=== PATIENT | male | born 1985 | race Caucasian/White ===

== ENCOUNTER 2017-01-07 06:18 | Emergency (ER) | payer BC, OTHER, SELFPAY ==
[2017-01-07 07:17] LABS: MEAN CORPUSCULAR HEMOGLOBIN 31.3 pg (27.0-33.0); MEAN CORPUSCULAR HGB CONC 34.1 g/dl (32.0-36.5); MEAN CORPUSCULAR VOLUME 91.9 fl (80.0-96.0); RED CELL DISTRIBUTION WIDTH 13.2 % (11.5-14.5); WHITE BLOOD COUNT 8.4 K/mm3 (4.0-10.0)
[2017-01-07 07:19] LABS: AMPHETAMINES LEVEL URINE NEGATIVE (NEGATIVE); BENZODIAZEPINES URINE NEGATIVE (NEGATIVE); COCAINE METABOLITE URINE NEGATIVE (NEGATIVE); CONTROL LINE INT CTR LINE PRESENT; METHADONE URINE NEGATIVE (NEGATIVE); OPIATES URINE NEGATIVE (NEGATIVE); TRICYCLIC ANTIDEPRESS URINE NEGATIVE (NEGATIVE)
[2017-01-07 07:41] LABS: ALBUMIN 4.2 GM/DL (3.2-5.2); ALBUMIN/GLOBULIN RATIO 1.68 (1.00-1.93); ALKALINE PHOSPHATASE 94 U/L (45-117); ALT/SGPT 40 U/L (12-78); ANION GAP 12 MEQ/L (8-16); AST/SGOT 15 U/L (15-37); BILIRUBIN,DIRECT < 0.1 MG/DL (0.0-0.2); BILIRUBIN,TOTAL 0.2 MG/DL (0.2-1.0); BLOOD UREA NITROGEN 8 MG/DL (7-18); CALCIUM LEVEL 8.6 MG/DL (8.5-10.1); CARBON DIOXIDE LEVEL 25 MEQ/L (21-32); CHLORIDE LEVEL 108 MEQ/L (98-107); CREATININE FOR GFR 0.98 MG/DL (0.70-1.30); GLOMERULAR FILTRATION RATE > 60.0 (>60); GLUCOSE, FASTING 96 MG/DL (70-105); POTASSIUM SERUM 4.2 MEQ/L (3.5-5.1); SODIUM LEVEL 145 MEQ/L (136-145); TOTAL PROTEIN 6.7 GM/DL (6.4-8.2)
[2017-01-07] MEDS ORDERED: GABAPENTIN 100 MG CAP As Ordered ONE (07:58)
--- NOTE | 2017-01-07 17:39 | EDDOCDS ---
Physician Documentation [facility] Name: Mark Medina Age: 31 yrs Sex: Male : 1985 Arrival Date: 01/07/2017 Time: 06:18 Bed [facility] Private MD: Disposition: 01/07/17 15:19 Transfer ordered to [facility] ([place]). Diagnosis is Suicidal ideations. - Reason for transfer: Higher level of care. - Accepting physician is Dr Arvizu. - Condition is Unchanged. - Problem is new. - Symptoms have improved. Historical: - Allergies: No known drug Allergies; - Home Meds: 1. gabapentin 600 mg Oral tab 1 tab 3 times per day - PMHx: back injury; - PSHx: Adenoidectomy; Tonsillectomy; - Social history: Smoking status: Patient uses tobacco products, current every day smoker. No barriers to communication noted, The patient speaks fluent French, Speaks appropriately for age. - Family history: Not pertinent. - : The pt / caregiver states he / she is not on anticoagulants. Home medication list is obtained from the patient. - Exposure Risk Screening:: None identified. Vital Signs: 01/07 06:28 BP 136 / 70; Pulse 109; Resp 18; Temp 99.3(TE); Pulse Ox 96% on R/A; Weight 117.93 kg / rw1 259.99 lbs (R); Height 6 ft. 3 in. (190.50 cm) (R); Pain 0/10; 12:30 BP 131 / 86; Pulse 86; Resp 16; Pulse Ox 96% on R/A; jo3 17:26 BP 128 / 84; Pulse 80; Resp 18; Temp 97.2(O); Pulse Ox 98% ; Pain 0/10; jo3 06:28 Body Mass Index 32.50 (117.93 kg, 190.50 cm) rw1 MDM: 06:26 [facility] Legal paperwork was scanned into [employer] and attached to record. rb 06:48 Consult PFS/PSA/Branch Mechanic ordered. nov 06:48 Consult PFS/PSA/Branch Mechanic: Patient's case requires discussion with on-call domingo Psychiatrist ordered. 06:48 PSA/PFS to call Nursing Botany Teacher, to enter patient data on [place] Safe Act if patient domingo involuntarily admitted or transferred for SI or HI ordered. 06:48 Confirm accurate psychiatric medication list and times of last dosage ordered. domingo 06:48 Detain Pt Until Medically/PFS Cleared ordered. domingo 06:49 Acetaminophen Level Ordered. EDMS 06:49 Basic Metabolic Profile Ordered. EDMS 06:49 Complete Blood Count Ordered. EDMS 06:49 Drug Eval Toxicology ED Only Ordered. EDMS 06:49 Ethyl Alcohol (ethanol) Ordered. EDMS 06:49 Liver Profile Ordered. EDMS 06:49 Salicylate Level Ordered. EDMS 06:49 Thyroid Stimulating Hormone Ordered. EDMS 07:35 Financial registration complete. lg 07:46 [facility] Payment Agreement was scanned into [employer] and attached to record. lg 07:55 Gabapentin 600 mg PO once ordered. ml6 07:59 REGULAR DIET PLASTIC CASSIDY+DIET ordered. EDMS 11:20 REGULAR DIET PLASTIC CASSIDY+DIET ordered. EDMS 17:26 [facility] Legal paperwork was scanned into [employer] and attached to record. ms 17:28 [facility] Legal paperwork was scanned into [employer] and attached to record. ms Administered Medications: 08:01 Drug: Gabapentin 600 mg [gabapentin 100 mg capsule (6 caps)] Route: PO; ml6 Signatures: Dispatcher [employer] EDMS Aileen Paige RN RN jan Baxter, Cora, PSA PSA rb Ravindra, Davida, PSA PSA ms Jennifer Triplett, Reg Reg lg Cherelle Hunt,RN Dariel Castro, RN [place] ml6 Cherelle Ruiz,RN RN js13 Ana Paula Durand,RN RN js15 Amina Ortiz MD MD fg The chart was reviewed and I authenticate all verbal orders and agree with the evaluation and treatment provided.Attachments: 07:46 [facility] Payment Agreement lg MTDD
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
--- NOTE | 2017-01-09 18:39 | EDDOCDS ---
Physician Documentation [facility] Name: Mark Medina Age: 31 yrs Sex: Male : 1985 Arrival Date: 01/07/2017 Time: 06:18 Bed [facility] Private MD: Disposition: 01/07/17 15:19 Transfer ordered to [facility] Diagnosis is Suicidal ideations. - Reason for transfer: Higher level of care. - Accepting physician is Dr Arvizu. - Condition is Unchanged. - Problem is new. - Symptoms have improved. Historical: - Allergies: No known drug Allergies; - Home Meds: 1. gabapentin 600 mg Oral tab 1 tab 3 times per day - PMHx: back injury; - PSHx: Adenoidectomy; Tonsillectomy; - Social history: Smoking status: Patient uses tobacco products, current every day smoker. No barriers to communication noted, The patient speaks fluent Wallisian, Speaks appropriately for age. - Family history: Not pertinent. - : The pt / caregiver states he / she is not on anticoagulants. Home medication list is obtained from the patient. - Exposure Risk Screening:: None identified. Vital Signs: 01/07 06:28 BP 136 / 70; Pulse 109; Resp 18; Temp 99.3(TE); Pulse Ox 96% on R/A; Weight 117.93 kg / rw1 259.99 lbs (R); Height 6 ft. 3 in. (190.50 cm) (R); Pain 0/10; 12:30 BP 131 / 86; Pulse 86; Resp 16; Pulse Ox 96% on R/A; jo3 17:26 BP 128 / 84; Pulse 80; Resp 18; Temp 97.2(O); Pulse Ox 98% ; Pain 0/10; jo3 06:28 Body Mass Index 32.50 (117.93 kg, 190.50 cm) rw1 MDM: 06:26 [facility] Legal paperwork was scanned into [employer] and attached to record. rb 06:48 Consult PFS/PSA/Ship Steward ordered. nov 06:48 Consult PFS/PSA/Ship Steward: Patient's case requires discussion with on-call domingo Psychiatrist ordered. 06:48 PSA/PFS to call Nursing [facility], to enter patient data on [place] Safe Act if patient domingo involuntarily admitted or transferred for SI or HI ordered. 06:48 Confirm accurate psychiatric medication list and times of last dosage ordered. domingo 06:48 Detain Pt Until Medically/PFS Cleared ordered. domingo 06:49 Acetaminophen Level Ordered. EDMS 06:49 Basic Metabolic Profile Ordered. EDMS 06:49 Complete Blood Count Ordered. EDMS 06:49 Drug Eval Toxicology ED Only Ordered. EDMS 06:49 Ethyl Alcohol (ethanol) Ordered. EDMS 06:49 Liver Profile Ordered. EDMS 06:49 Salicylate Level Ordered. EDMS 06:49 Thyroid Stimulating Hormone Ordered. EDMS 07:35 Financial registration complete. lg 07:46 [facility] Payment Agreement was scanned into [employer] and attached to record. lg 07:55 Gabapentin 600 mg PO once ordered. ml6 07:59 REGULAR DIET PLASTIC CASSIDY+DIET ordered. EDMS 11:20 REGULAR DIET PLASTIC CASSIDY+DIET ordered. EDMS 17:26 [facility] Legal paperwork was scanned into [employer] and attached to record. ms 17:28 [facility] Legal paperwork was scanned into [employer] and attached to record. ms 18:20 T-Sheet-- Draft Copy was scanned into [employer] and attached to record. klr Administered Medications: 08:01 Drug: Gabapentin 600 mg [gabapentin 100 mg capsule (6 caps)] Route: PO; ml6 Signatures: Dispatcher [employer] EDMS Aileen Paige RN RN jan Baxter, Cora, PSA PSA rb Stone, Davida, PSA PSA ms Dylonclaudio, Jennifer, Reg Reg lg Cherelle Hunt,RN Dariel Castro RN RN ml6 Cherelle Ruiz,RN RN js13 Ana Paula Durand,RN RN js15 Amina Ortiz MD MD fg Redder, Kathie klr The chart was reviewed and I authenticate all verbal orders and agree with the evaluation and treatment provided.Attachments: 07:46 [facility] Payment Agreement lg 18:20 T-Sheet-- Draft Copy klr Chart Complete MTDD
--- NOTE | 2017-01-09 18:39 | EDDOCDS ---
Physician Documentation [facility] Name: Mark Medina Age: 31 yrs Sex: Male : 1985 Arrival Date: 01/07/2017 Time: 06:18 Bed [facility] Private MD: Disposition: 01/07/17 15:19 Transfer ordered to [facility] ([place]). Diagnosis is Suicidal ideations. - Reason for transfer: Higher level of care. - Accepting physician is Dr Arvizu. - Condition is Unchanged. - Problem is new. - Symptoms have improved. Historical: - Allergies: No known drug Allergies; - Home Meds: 1. gabapentin 600 mg Oral tab 1 tab 3 times per day - PMHx: back injury; - PSHx: Adenoidectomy; Tonsillectomy; - Social history: Smoking status: Patient uses tobacco products, current every day smoker. No barriers to communication noted, The patient speaks fluent [place], Speaks appropriately for age. - Family history: Not pertinent. - : The pt / caregiver states he / she is not on anticoagulants. Home medication list is obtained from the patient. - Exposure Risk Screening:: None identified. Vital Signs: 01/07 06:28 BP 136 / 70; Pulse 109; Resp 18; Temp 99.3(TE); Pulse Ox 96% on R/A; Weight 117.93 kg / rw1 259.99 lbs (R); Height 6 ft. 3 in. (190.50 cm) (R); Pain 0/10; 12:30 BP 131 / 86; Pulse 86; Resp 16; Pulse Ox 96% on R/A; jo3 17:26 BP 128 / 84; Pulse 80; Resp 18; Temp 97.2(O); Pulse Ox 98% ; Pain 0/10; jo3 06:28 Body Mass Index 32.50 (117.93 kg, 190.50 cm) rw1 MDM: 06:26 [facility] Legal paperwork was scanned into [employer] and attached to record. rb 06:48 Consult PFS/PSA/Senior Investigator ordered. nov 06:48 Consult PFS/PSA/Senior Investigator: Patient's case requires discussion with on-call domingo Psychiatrist ordered. 06:48 PSA/PFS to call Nursing Hydraulic Auto Jack Mechanic, to enter patient data on [place] Safe Act if patient [place] involuntarily admitted or transferred for SI or HI ordered. 06:48 Confirm accurate psychiatric medication list and times of last dosage ordered. domingo 06:48 Detain Pt Until Medically/PFS Cleared ordered. domingo 06:49 Acetaminophen Level Ordered. EDMS 06:49 Basic Metabolic Profile Ordered. EDMS 06:49 Complete Blood Count Ordered. EDMS 06:49 Drug Eval Toxicology ED Only Ordered. EDMS 06:49 Ethyl Alcohol (ethanol) Ordered. EDMS 06:49 Liver Profile Ordered. EDMS 06:49 Salicylate Level Ordered. EDMS 06:49 Thyroid Stimulating Hormone Ordered. EDMS 07:35 Financial registration complete. lg 07:46 [facility] Payment Agreement was scanned into [employer] and attached to record. lg 07:55 Gabapentin 600 mg PO once ordered. ml6 07:59 REGULAR DIET PLASTIC CASSIDY+DIET ordered. EDMS 11:20 REGULAR DIET PLASTIC CASSIDY+DIET ordered. EDMS 17:26 [facility] Legal paperwork was scanned into [employer] and attached to record. ms 17:28 [facility] Legal paperwork was scanned into [employer] and attached to record. ms 18:20 T-Sheet-- Draft Copy was scanned into [employer] and attached to record. klr Administered Medications: 08:01 Drug: Gabapentin 600 mg [gabapentin 100 mg capsule (6 caps)] Route: PO; ml6 Signatures: Dispatcher [employer] EDMS Aileen Paige RN RN jan Baxter, Cora, PSA PSA rb Stone, Davida, PSA PSA ms Dylonclaudio, Jennifer, Reg Reg lg Cherelle Hunt,RN Dariel Castro RN RN ml6 Cherelle Ruiz,RN RN [id number] Ana Paula Durand,RN RN [id number] Amina Ortiz MD MD fg Redder, Kathie klr The chart was reviewed and I authenticate all verbal orders and agree with the evaluation and treatment provided.Attachments: 07:46 [facility] Payment Agreement lg 18:20 T-Sheet-- Draft Copy klr Chart Complete MTDD
== END 2017-01-07 17:38 ==
LOC: M ED 06:18
DX: F10.220 Alcohol dependence with intoxication, uncomplicated (principal); R45.851 Suicidal ideations; M79.7 Fibromyalgia; Z79.899 Other long term (current) drug therapy; F17.210 Nicotine dependence, cigarettes, uncomplicated
CPT/HCPCS: 36415; 80048; 80076; 80306; 84443; 85027; 99285; G0480